=== PATIENT | female | born 1995 | race Caucasian/White ===

== ENCOUNTER 2023-12-13 08:31 | Inpatient (IN) ==
[2023-12-13] MEDS ORDERED: LIDOCAINE 1% LOCAL 20 ML VIAL INFIL PRN (14:34)
[2023-12-13] MEDS ORDERED: CALCIUM CARBONATE 500 MG CHEWABLE TAB PO PRN (14:34)
[2023-12-13] MEDS ORDERED: ACETAMINOPHEN 325 MG TAB PO PRN (14:34)
[2023-12-13] MEDS ORDERED: OXYTOCIN 30 UNITS/NSS 30 UNITS/500 ML BAG IV PRN (14:34)
--- NOTE | 2023-12-13 14:57 | History & Physical Report ---
Date of Service December 13, 2023 Assessment & Plan (1) with 39 completed weeks gestation: (2) Normal labor: Plan admit. Plan arom for augmentation. fetus category one. epidural on demand. anticipate . Admission and Anticipated Discharge Date Admission Date: December 13, 2023 History of Present Illness Chief Complaint: labor , contractions Primary Care Provider: Loi Kramer DO Patient is a 28yof, with iup at 39 4/7 weeks who presents to labor and delivery with contractions. Started at 3pm yesterday and worsened at 3am. Presented today at about 8am. Monitored for several hours and has made slow cervical change so being admitted. Good fm. no lof/vb. and Delivery Plans Flu shot given 05/04/23 - AL IOL Post-dates 12/21 OB Labs: Blood Type B Positive 05/04/23 Antibody Screen NEGATIVE 05/04/23 Hemoglobin 11.4 g/dl (12.0-16.0) L 09/24/23 Hematocrit 32.7 % (37.0-47.0) L 09/24/23 Mean Corpuscular Volume 83.7 fL (80.0-100.0) 05/04/23 Platelet Count 247 K/uL (130-400) 05/04/23 Rubella IgG Antibody Immune (Immune) 05/04/23 Rapid Plasma Reagin Nonreactive (Nonreactive) 05/04/23 Hepatitis B Surface Antigen. NON-REACTIVE (NON-REACTIVE) 05/04/23 Hepatitis C Antibody (EIA) NON-REACTIVE (NON-REACTIVE) 05/04/23 HIV (1&2) Ag and Ab Confirmation NON-REACTIVE (NON-REACTIVE) 05/04/23 Glucose 1 Hour 50 gm Load 83 mg/dl (70-130) 09/24/23 OB Optional Labs: Chlamydia trachomatis RNA Not Detected (NotDetected) 05/04/23 Neisseria gonorrhoeae RNA Not Detected (NotDetected) 05/04/23 Thyroid Stimulating Hormone (TSH) 1.058 uIu/ml (0.300-4.500) 10/15/21 Labs Reviewed: cf/sma-negative--mln Declines cfdna/quad screen--mln msafp declined smp gbs neg Allergies Allergy/AdvReac Type Severity Reaction Status Date / Time No Known Drug Allergies Allergy Verified 12/10/23 16:35 Home Medications Medication Instructions Recorded Confirmed Type albuterol sulfate 90 mcg/actuation 2 puff inhalation QID PRN prior to 01/12/21 12/13/23 History aerosol inhaler excercise fluoxetine 20 mg capsule (Prozac) 20 mg PO ONCE 04/24/22 12/13/23 History choline-silicon PO 04/28/23 12/10/23 History 21-iron fu-folic acid PO 04/28/23 12/10/23 History [ Complete] breast pump #1 ea 11/05/23 12/10/23 Rx Patient History Medical History Varicella vaccination ADHD Asthma Surgical History Hx of tooth extraction Family History Grandmother (Maternal) Diabetes Denies family history of Ovarian cancer Prostate cancer Myocardial infarction Breast cancer Colorectal cancer Cancer Social History Smoking Status: Never smoker Tobacco Type: Cigarettes Age Started Using Tobacco: 20; Age Quit Using Tobacco: 23; Cigarettes Per Day: social smoker; Second Hand Exposure: No; Do You Dip or Chew Tobacco: No; Hx Alcohol Use: No Hx Substance Use: No Preferred Language: Belizean Communication Ability: Effective Visual Impairment: Limited Hearing Ability: Normal Biomed Tech Required: Yes Beliefs That Will Affect Care: None marital status: marital status details: Jose Juan Baker (30) [phone] Current Living Situation: Spouse Current Living Situation Comment: lives with spouse, dogs current occupational status: employed current occupation: [employer] How many Children do You have: 0 Feels Safe at Home: Yes Childhood Exposure to Second-Hand Smoke: Yes caffeine: Yes Dental Care, Regularly: Yes Physical Activity Frequency Comment: physical activity at work. heavy lifting at work and walking Seatbelt Use: always Sunscreen Use: Yes Assistive Devices: None OB History g1--present DINING ROOM BUSSER History noncontributory Physical Exam Constitutional: WD/WN, vitals as above Gastrointestinal (Abdomen): soft, gravid, nt Psychiatric: A+Ox3, euthymic affect Genitourinary: cx--3-4/90/-2 toco--q3-5min efm--category one fetus. reactive nst Results & Data Vital Signs (Past 12 Hours) Vital Signs Temp Pulse Resp BP 12/13/23 09:04 37.1 C 79 22 111/65 12/13/23 08:40 79 111/65 Coding Level of Care Code None Diagnoses with 39 completed weeks gestation Z3A.39 Normal labor O80; Z37.9
[2023-12-13 15:05] LABS: Hematocrit (blood only) 36.1 % (37.0-47.0); Hemoglobin 12.3 g/dl (12.0-16.0); Mean Corpuscular Hemoglobin 29.1 pg (25.0-34.0); Mean Corpuscular Hgb Conc 34.1 g/dL (32.0-36.0); Mean Corpuscular Volume 85.3 fL (80.0-100.0); Mean Platelet Volume 11.6 fL (9.4-12.4); Platelet Count 180 K/uL (130-400); RDW Coefficient of Variation 14.8 % (11.5-14.5); RDW Standard Deviation 45.9 fL (36.4-46.3); Red Blood Count 4.23 M/uL (4.20-5.40); White Blood Count 10.33 K/ul (4.8-10.8)
[2023-12-13] MEDS: LACTATED RINGER'S 1,000 ML IV PRN (15:30)
[2023-12-13] MEDS ORDERED: LIDOCAINE 2% MPF LOCAL 5 ML VIAL EPI PRN (15:55)
[2023-12-13] MEDS ORDERED: NALOXONE HCL 1 MG in SODIUM CHLORIDE 0.9% 1,000 ML IV PRN (15:55)
[2023-12-13] MEDS ORDERED: NALBUPHINE HCL 5 MG in SYRINGE 0 ML IV PRN (15:55)
[2023-12-13] MEDS ORDERED: SODIUM CHLORIDE 0.9% PF INJ 10 ML VIAL EPI PRN (15:55)
[2023-12-13] MEDS ORDERED: ePHEDrine sulfate 50 MG/ML AMP IV PRN (15:55)
[2023-12-13] MEDS ORDERED: BUPIVACAINE 0.25% PF 30 ML VIAL EPI PRN (15:55)
[2023-12-13] MEDS ORDERED: NALOXONE HCL 0.4 MG/1 ML VIAL/CARP IV PRN (15:55)
[2023-12-13] MEDS ORDERED: ROPIVACAINE 0.5% PF 5 MG/ML 20 ML VIAL EPI PRN (15:55)
[2023-12-13] MEDS ORDERED: ONDANSETRON INJ 2 MG/ML 2 ML VIAL IV PRN (15:55)
[2023-12-13] MEDS ORDERED: fentaNYL citrate PF 100 MCG/2 ML VIAL EPI PRN (15:55)
[2023-12-13] MEDS ORDERED: fentANYL 2 MCG/ML BUPIVacaine 0.125%-NSS 100ML BAG EPI PRN (15:55)
[2023-12-13] MEDS ORDERED: diphenhydrAMINE 50 MG/ML VIAL IV PRN (15:55)
--- NOTE | 2023-12-13 15:55 | Anesthesiology Consultation ---
Date of Service December 13, 2023 Assessment & Plan Chart Review Chart Review: Patient NOT seen in Pre Admission Testing and Acceptable Risk for Labor Epidural Consults Requested none ASA ASA2 Proposed Anesthesia Anesthesia Type: Labor Epidural Risk / Benefits Reviewed With: PT / POA / Parent / Guardian, Accepts Plan and Informed Consent Obtained History Height/Weight Height: 5 ft 7 in Weight: 71.307 kg Allergies Allergy/AdvReac Type Severity Reaction Status Date / Time No Known Drug Allergies Allergy Verified 12/10/23 16:35 Medications Home Medications Medication Instructions Recorded Confirmed Last Taken albuterol sulfate 90 mcg/actuation 2 puff inhalation QID PRN prior to 01/12/21 12/13/23 Unknown aerosol inhaler excercise fluoxetine 20 mg capsule (Prozac) 20 mg PO ONCE 04/24/22 12/13/23 12/12/23 20:00 choline-silicon PO 04/28/23 12/10/23 Unknown 21-iron fu-folic acid PO 04/28/23 12/10/23 Unknown [ Complete] breast pump #1 ea 11/05/23 12/10/23 Unknown Active Medications Generic Name Dose Route Start Last Admin Trade Name Freq PRN Reason Stop Dose Admin Lactated Ringer's 1,000 mls @ 125 mls/hr 12/13/23 14:34 12/13/23 15:30 Lr IV 12/15/23 14:33 999 mls/hr .Q8H PRN Administration L&D Protocol Protocol Past Medical History Medical History Varicella vaccination ADHD Asthma Exercise / Class Metabolic Activity II 4-5 Yardwork/Stairs/Walk up hill Past Family History Family History Grandmother (Maternal) Diabetes Denies family history of Ovarian cancer Prostate cancer Myocardial infarction Breast cancer Colorectal cancer Cancer Past Surgical History Surgical History Hx of tooth extraction Past Anesthesia History No Hx of Anesthesia Complications and No Family Hx of Anesthesia Complications History of PONV No Hx of PONV and No Hx of Motion Sickness Social History Smoking Status: Never smoker Smoking cigarettes per day: social smoker Do You Dip or Chew Tobacco: No Hx Alcohol Use: No Alcohol type: hard liquor Hx Substance Use: No Physical Exam Vital Signs Last Vital Signs Temp 37.1 C 12/13/23 09:04 Pulse 75 12/13/23 15:49 Resp 22 12/13/23 09:04 BP 111/65 12/13/23 09:04 Pulse Ox 100 12/13/23 15:49 ENMT Mouth: no dentition abnormality Thyromental Distance: > or= 3.5 Finger Breadths Mallampati Class: II Neck normal visual inspection Respiratory normal respiratory effort Auscultation: lungs clear to auscultation bilaterally Cardiovascular Rate/Rhythm: regular rate and regular rhythm Psychiatric Orientation: alert Testing Laboratory Results 12/13/23 14:51
[2023-12-13] MEDS: fentANYL 2 MCG/ML BUPIVacaine 0.125%-NSS 100ML BAG ONE (16:07)
[2023-12-13] MEDS: BUPIVACAINE 0.25% PF 30 ML VIAL ONE (16:25)
[2023-12-13] MEDS: SODIUM CHLORIDE 0.9% PF INJ 10 ML VIAL ONE (16:25)
[2023-12-13] MEDS: LIDOCAINE 2%/EPINEPHRINE 1:200,000 20 ML PF ONE (16:25)
[2023-12-13] MEDS: fentaNYL citrate PF 100 MCG/2 ML VIAL ONE (16:26)
--- NOTE | 2023-12-13 16:44 | History & Physical Report ---
Date of Service December 13, 2023 Assessment & Plan (1) Normal labor: (2) with 39 completed weeks gestation: (3) Vaginal discharge during : (4) Supervision of normal first : (5) Anxiety: Plan Admit to L&D for active labor Anticipate vaginal delivery Plan is to administer epidural followed by [facility] Admission and Anticipated Discharge Date Admission Date: December 13, 2023 History of Present Illness Primary Care Provider: Loi Kramer, DO 28 yo at 39 4/7 weeks presents to L&D for contractions. Monitored for several hours and patient made slow cervical progression, so she is being admitted for labor. No complications with this . Has been attending OB appointments regularly. Currently taking fluoxetine for anxiety. GBS +, Rubella immune, B positive blood type. No vaginal bleeding or leaking fluid. Moderate contractions. Active movement. Desires an epidural. Allergies Allergy/AdvReac Type Severity Reaction Status Date / Time No Known Drug Allergies Allergy Verified 12/10/23 16:35 Home Medications Medication Instructions Recorded Confirmed Type albuterol sulfate 90 mcg/actuation 2 puff inhalation QID PRN prior to 01/12/21 12/13/23 History aerosol inhaler excercise fluoxetine 20 mg capsule (Prozac) 20 mg PO ONCE 04/24/22 12/13/23 History choline-silicon PO 04/28/23 12/10/23 History 21-iron fu-folic acid PO 04/28/23 12/10/23 History [ Complete] breast pump #1 ea 11/05/23 12/10/23 Rx Past Med/Surg History Problem List (Updated 12/13/23 @ 16:30 by Rebekah Patton) Normal labor with 39 completed weeks gestation Vaginal discharge during Supervision of normal first Anxiety Medical History Varicella vaccination ADHD Asthma Surgical History Hx of tooth extraction Family History Grandmother (Maternal) Diabetes Denies family history of Ovarian cancer Prostate cancer Myocardial infarction Breast cancer Colorectal cancer Cancer Social History Smoking Status: Never smoker Tobacco Type: Cigarettes Age Started Using Tobacco: 20; Age Quit Using Tobacco: 23; Cigarettes Per Day: social smoker; Second Hand Exposure: No; Do You Dip or Chew Tobacco: No; Hx Alcohol Use: No Hx Substance Use: No Preferred Language: Swedish Communication Ability: Effective Visual Impairment: Limited Hearing Ability: Normal Paste Thinner Required: Yes Beliefs That Will Affect Care: None marital status: marital status details: Jose Juan Baker (30) [phone] Current Living Situation: Spouse Current Living Situation Comment: lives with spouse, dogs current occupational status: employed current occupation: [employer] How many Children do You have: 0 Feels Safe at Home: Yes Childhood Exposure to Second-Hand Smoke: Yes caffeine: Yes Dental Care, Regularly: Yes Physical Activity Frequency Comment: physical activity at work. heavy lifting at work and walking Seatbelt Use: always Sunscreen Use: Yes Assistive Devices: None Review of Systems Review of Systems: as per HPI Physical Exam Constitutional: WD/WN, vitals as above Respiratory: normal respiratory effort, lungs clear to auscultation Cardiovascular: RRR, no murmur, no edema Gastrointestinal (Abdomen): Percussion/Palpation: abdomen soft (non-tender) Psychiatric: A+Ox3, euthymic affect Results & Data Results & Data Vital Signs (Past 12 Hours) Vital Signs Temp Pulse Resp BP Pulse Ox 12/13/23 15:34 100 12/13/23 15:34 68 12/13/23 09:04 37.1 C 79 22 111/65 12/13/23 08:40 79 111/65 (3) Vaginal discharge during Trimester: unspecified trimester Qualified Code(s): O26.899 - Other specified related conditions, unspecified trimester; N89.8 - Other specified noninflammatory disorders of vagina (4) Supervision of normal first Trimester: unspecified trimester Qualified Code(s): Z34.00 - Encounter for supervision of normal first , unspecified trimester
--- NOTE | 2023-12-13 17:02 | Medical Student H&P ---
Date of Service December 13, 2023 Assessment & Plan (1) Normal labor: (2) with 39 completed weeks gestation: (3) Vaginal discharge during : Trimester: third trimester Qualified Code(s): O26.893 - Other specified related conditions, third trimester; N89.8 - Other specified noninflammatory disorders of vagina (4) Supervision of normal first : Trimester: unspecified trimester Qualified Code(s): Z34.00 - Encounter for supervision of normal first , unspecified trimester (5) Anxiety: Plan Admit to L&D for labor Anticipate vaginal delivery Epidural followed by [facility] Admission and Anticipated Discharge Date Admission Date: December 13, 2023 History of Present Illness Primary Care Provider: Loi Kramer, DO 28 yo at 39 4/7 weeks presents to L&D for contractions. Monitored for 3 hours and cervix progressed from 1.5 to 3.5. Admitting for labor. No complications with this . Has been attending OB appointments regularly. Currently taking fluoxetine 20 mg for anxiety. GBS negative, Rubella immune, B positive blood type. No vaginal bleeding or fluid leakage. Moderate contractions. Active movement. Epidural desired. Allergies Allergy/AdvReac Type Severity Reaction Status Date / Time No Known Drug Allergies Allergy Verified 12/10/23 16:35 Home Medications Medication Instructions Recorded Confirmed Type albuterol sulfate 90 mcg/actuation 2 puff inhalation QID PRN prior to 01/12/21 12/13/23 History aerosol inhaler excercise fluoxetine 20 mg capsule (Prozac) 20 mg PO ONCE 04/24/22 12/13/23 History choline-silicon PO 04/28/23 12/10/23 History 21-iron fu-folic acid PO 04/28/23 12/10/23 History [ Complete] breast pump #1 ea 11/05/23 12/10/23 Rx Past Med/Surg History Problem List (Updated 12/13/23 @ 16:30 by Rebekah Patton) Normal labor with 39 completed weeks gestation Vaginal discharge during Supervision of normal first Anxiety Medical History Varicella vaccination ADHD Asthma Surgical History Hx of tooth extraction Family History Grandmother (Maternal) Diabetes Denies family history of Ovarian cancer Prostate cancer Myocardial infarction Breast cancer Colorectal cancer Cancer Social History Smoking Status: Never smoker Tobacco Type: Cigarettes Age Started Using Tobacco: 20; Age Quit Using Tobacco: 23; Cigarettes Per Day: social smoker; Second Hand Exposure: No; Do You Dip or Chew Tobacco: No; Hx Alcohol Use: No Hx Substance Use: No Preferred Language: Bolivian Communication Ability: Effective Visual Impairment: Limited Hearing Ability: Normal Gauge Operator Required: Yes Beliefs That Will Affect Care: None marital status: marital status details: Jose Juan Baker (30) [phone] Current Living Situation: Spouse Current Living Situation Comment: lives with spouse, dogs current occupational status: employed current occupation: [employer] How many Children do You have: 0 Feels Safe at Home: Yes Childhood Exposure to Second-Hand Smoke: Yes caffeine: Yes Dental Care, Regularly: Yes Physical Activity Frequency Comment: physical activity at work. heavy lifting at work and walking Seatbelt Use: always Sunscreen Use: Yes Assistive Devices: None Review of Systems As per HPI Physical Exam Constitutional: WD/WN, vitals as above Respiratory: normal respiratory effort, lungs clear to auscultation Cardiovascular: RRR, no murmur, no edema Gastrointestinal (Abdomen): Percussion/Palpation: abdomen soft (non-tender) Psychiatric: A+Ox3, euthymic affect Results & Data Vital Signs (Past 12 Hours) Vital Signs Temp Pulse Resp BP Pulse Ox 12/13/23 16:44 100 12/13/23 16:44 58 L 12/13/23 16:41 60 12/13/23 16:41 107/63 12/13/23 16:39 100 12/13/23 16:39 59 L 12/13/23 16:34 100 12/13/23 16:34 68 12/13/23 16:29 100 12/13/23 16:29 63 12/13/23 16:24 100 12/13/23 16:24 63 12/13/23 16:22 62 12/13/23 16:22 99/54 L 12/13/23 16:20 67 12/13/23 16:20 104/58 L 12/13/23 16:19 100 12/13/23 16:19 64 12/13/23 16:19 68 12/13/23 16:19 104/59 L 12/13/23 16:17 68 12/13/23 16:17 106/64 12/13/23 16:14 100 12/13/23 16:14 70 12/13/23 16:14 101/60 12/13/23 16:12 64 12/13/23 16:12 104/61 12/13/23 16:10 67 12/13/23 16:10 111/67 12/13/23 16:09 100 12/13/23 16:09 70 12/13/23 16:09 66 12/13/23 16:09 109/66 12/13/23 16:07 84 12/13/23 16:07 110/69 12/13/23 16:04 100 12/13/23 16:04 79 12/13/23 15:59 100 12/13/23 15:59 78 12/13/23 15:58 65 12/13/23 15:58 107/66 12/13/23 15:54 100 12/13/23 15:54 65 12/13/23 15:49 100 12/13/23 15:49 75 12/13/23 15:44 100 12/13/23 15:44 66 12/13/23 15:39 100 12/13/23 15:39 63 12/13/23 15:34 100 12/13/23 15:34 68 12/13/23 09:04 37.1 C 79 22 111/65 12/13/23 08:40 79 111/65 Supervising Attestation Please see formal H&P per attending
--- NOTE | 2023-12-13 17:04 | Labor Progress Brief Note ---
Date of Service December 13, 2023 Subjective comfortable after epidural Assessment & Plan (1) Normal labor: Plan continue current plan. fetus overall category one. pit if indicated. anticipate . Admission and Anticipated Discharge Date Admission Date: December 13, 2023 Physical Exam Physical Exam: cx--5-6/100/-2 arom--clear toco--q2-4 efm--150s with mod variability, small accels, rare variable. Results & Data Vital Signs (Past 12 Hours) Vital Signs Temp Pulse Resp BP Pulse Ox 12/13/23 16:59 100 12/13/23 16:59 66 12/13/23 16:54 100 12/13/23 16:54 69 12/13/23 16:54 66 12/13/23 16:54 108/65 12/13/23 16:49 100 12/13/23 16:49 65 12/13/23 16:44 100 12/13/23 16:44 58 L 12/13/23 16:41 60 12/13/23 16:41 107/63 12/13/23 16:39 100 12/13/23 16:39 59 L 12/13/23 16:34 100 12/13/23 16:34 68 12/13/23 16:29 100 12/13/23 16:29 63 12/13/23 16:24 100 12/13/23 16:24 63 12/13/23 16:22 62 12/13/23 16:22 99/54 L 12/13/23 16:20 67 12/13/23 16:20 104/58 L 12/13/23 16:19 100 12/13/23 16:19 64 12/13/23 16:19 68 12/13/23 16:19 104/59 L 12/13/23 16:17 68 12/13/23 16:17 106/64 12/13/23 16:14 100 12/13/23 16:14 70 12/13/23 16:14 101/60 12/13/23 16:12 64 12/13/23 16:12 104/61 12/13/23 16:10 67 12/13/23 16:10 111/67 12/13/23 16:09 100 12/13/23 16:09 70 12/13/23 16:09 66 12/13/23 16:09 109/66 06/03/24 16:07 84 12/13/23 16:07 110/69 12/13/23 16:04 100 12/13/23 16:04 79 12/13/23 15:59 100 12/13/23 15:59 78 12/13/23 15:58 65 12/13/23 15:58 107/66 12/13/23 15:54 100 12/13/23 15:54 65 12/13/23 15:49 100 12/13/23 15:49 75 12/13/23 15:44 100 12/13/23 15:44 66 12/13/23 15:39 100 12/13/23 15:39 63 12/13/23 15:34 100 12/13/23 15:34 68 12/13/23 09:04 37.1 C 79 22 111/65 12/13/23 08:40 79 111/65 Coding Level of Care Code None Diagnoses Normal labor O80; Z37.9
[2023-12-13] MEDS: BUPIVACAINE 0.25% PF 30 ML VIAL EPI STA (18:58)
[2023-12-13] MEDS: LIDOCAINE 2%/EPINEPHRINE 1:200,000 20 ML PF EPI STA (18:58)
[2023-12-13] MEDS: SODIUM CHLORIDE 0.9% PF INJ 10 ML VIAL EPI STA (18:58)
[2023-12-13] MEDS: ePHEDrine sulfate 50 MG/ML AMP ONE (18:58)
[2023-12-13] MEDS: fentaNYL citrate PF 100 MCG/2 ML VIAL EPI STA (18:58)
--- NOTE | 2023-12-13 20:09 | Labor Progress Brief Note ---
Date of Service December 13, 2023 Subjective comfortable Assessment & Plan (1) Normal labor: Plan continue current management. fetus category one. pitocin if contractions space. anticipate . Admission and Anticipated Discharge Date Admission Date: December 13, 2023 Physical Exam Physical Exam: cx--7/100/-1 toco--q2-4min osp==230q with mod variability, accels to 150s, no decels Results & Data Vital Signs (Past 12 Hours) Vital Signs Temp Pulse Resp BP Pulse Ox 12/13/23 20:04 99 12/13/23 20:04 67 12/13/23 19:59 100 12/13/23 19:59 67 12/13/23 19:54 100 12/13/23 19:54 67 12/13/23 19:54 101/53 L 12/13/23 19:49 100 12/13/23 19:49 67 12/13/23 19:48 94 12/13/23 19:48 68 12/13/23 19:44 100 12/13/23 19:44 68 12/13/23 19:39 100 12/13/23 19:39 67 12/13/23 19:38 68 12/13/23 19:38 98/54 L 12/13/23 19:35 91 12/13/23 19:35 83 12/13/23 19:34 100 12/13/23 19:34 83 12/13/23 19:30 18 12/13/23 19:30 18 12/13/23 19:29 100 12/13/23 19:29 64 12/13/23 19:26 72 12/13/23 19:26 112/54 L 12/13/23 19:25 93 12/13/23 19:25 70 12/13/23 19:24 100 12/13/23 19:24 63 12/13/23 19:19 100 12/13/23 19:19 63 12/13/23 19:14 100 12/13/23 19:14 62 12/13/23 19:09 100 12/13/23 19:09 64 12/13/23 19:08 63 12/13/23 19:08 107/65 12/13/23 19:04 100 12/13/23 19:04 67 12/13/23 19:00 36.8 C 18 12/13/23 18:59 100 12/13/23 18:59 64 12/13/23 18:54 100 12/13/23 18:54 62 12/13/23 18:54 60 12/13/23 18:54 110/70 12/13/23 18:49 99 12/13/23 18:49 61 12/13/23 18:45 91 12/13/23 18:45 80 12/13/23 18:44 100 12/13/23 18:44 80 12/13/23 18:39 100 12/13/23 18:39 61 12/13/23 18:39 59 L 12/13/23 18:39 105/61 12/13/23 18:34 100 12/13/23 18:34 68 12/13/23 18:29 100 12/13/23 18:29 72 12/13/23 18:24 100 12/13/23 18:24 61 12/13/23 18:23 72 12/13/23 18:23 93/58 L 12/13/23 18:19 100 12/13/23 18:19 70 12/13/23 18:14 99 12/13/23 18:14 67 12/13/23 18:09 100 12/13/23 18:09 80 12/13/23 18:08 71 12/13/23 18:08 93/58 L 12/13/23 18:04 100 12/13/23 18:04 63 12/13/23 17:59 16 12/13/23 17:59 16 12/13/23 17:59 99 12/13/23 17:59 68 12/13/23 17:54 100 12/13/23 17:54 66 12/13/23 17:53 67 12/13/23 17:53 94/59 L 12/13/23 17:49 100 12/13/23 17:49 64 12/13/23 17:47 90 12/13/23 17:47 84 12/13/23 17:44 100 12/13/23 17:44 62 12/13/23 17:41 57 L 12/13/23 17:41 99/61 L 12/13/23 17:39 100 12/13/23 17:39 72 12/13/23 17:38 77 12/13/23 17:38 88/53 L 12/13/23 17:34 100 12/13/23 17:34 67 12/13/23 17:29 99 12/13/23 17:29 68 12/13/23 17:24 100 12/13/23 17:24 73 12/13/23 17:24 65 12/13/23 17:24 98/61 L 12/13/23 17:19 100 12/13/23 17:19 69 12/13/23 17:14 99 12/13/23 17:14 67 12/13/23 17:09 100 12/13/23 17:09 66 12/13/23 17:08 61 12/13/23 17:08 103/67 12/13/23 17:04 100 12/13/23 17:04 59 L 12/13/23 16:59 100 12/13/23 16:59 66 12/13/23 16:55 20 12/13/23 16:55 36.8 C 20 12/13/23 16:54 100 12/13/23 16:54 69 12/13/23 16:54 66 12/13/23 16:54 108/65 12/13/23 16:49 100 12/13/23 16:49 65 12/13/23 16:44 100 12/13/23 16:44 58 L 12/13/23 16:41 60 12/13/23 16:41 107/63 12/13/23 16:39 100 12/13/23 16:39 59 L 12/13/23 16:34 100 12/13/23 16:34 68 12/13/23 16:29 100 12/13/23 16:29 63 12/13/23 16:24 100 12/13/23 16:24 63 12/13/23 16:22 62 12/13/23 16:22 99/54 L 12/13/23 16:20 67 12/13/23 16:20 104/58 L 12/13/23 16:19 100 12/13/23 16:19 64 12/13/23 16:19 68 12/13/23 16:19 104/59 L 12/13/23 16:17 68 12/13/23 16:17 106/64 12/13/23 16:14 100 12/13/23 16:14 70 12/13/23 16:14 101/60 12/13/23 16:12 64 12/13/23 16:12 104/61 12/13/23 16:10 67 12/13/23 16:10 111/67 12/13/23 16:09 100 12/13/23 16:09 70 12/13/23 16:09 66 12/13/23 16:09 109/66 12/13/23 16:07 84 12/13/23 16:07 110/69 12/13/23 16:04 100 12/13/23 16:04 79 12/13/23 15:59 100 12/13/23 15:59 78 12/13/23 15:58 65 12/13/23 15:58 107/66 12/13/23 15:54 100 12/13/23 15:54 65 12/13/23 15:49 100 12/13/23 15:49 75 12/13/23 15:44 100 12/13/23 15:44 66 12/13/23 15:39 100 12/13/23 15:39 63 12/13/23 15:34 100 12/13/23 15:34 68 12/13/23 09:04 37.1 C 79 22 111/65 12/13/23 08:40 79 111/65 Coding Level of Care Code None Diagnoses Normal labor O80; Z37.9
--- NOTE | 2023-12-13 22:18 | Labor Progress Brief Note ---
Date of Service December 13, 2023 Subjective comfortable. not feeling pressure Assessment & Plan (1) Normal labor: Plan Will add pit as there have been some spacing of contractions. Recheck in one hour and likely start pushing. fetus category one. Admission and Anticipated Discharge Date Admission Date: December 13, 2023 Physical Exam Physical Exam: cx--ant lip, c/0 toco--q2-5min efm--130s wtih mod variability, accels present, no decels Results & Data Vital Signs (Past 12 Hours) Vital Signs Temp Pulse Resp BP Pulse Ox 12/13/23 22:15 91 12/13/23 22:15 67 12/13/23 22:14 97 12/13/23 22:14 60 12/13/23 22:09 98 12/13/23 22:09 64 12/13/23 22:09 60 12/13/23 22:09 97/52 L 12/13/23 22:04 97 12/13/23 22:04 62 12/13/23 22:00 18 12/13/23 22:00 18 12/13/23 21:59 98 12/13/23 21:59 63 12/13/23 21:54 98 12/13/23 21:54 64 12/13/23 21:54 59 L 12/13/23 21:54 98/55 L 12/13/23 21:49 98 12/13/23 21:49 61 12/13/23 21:44 98 12/13/23 21:44 64 12/13/23 21:39 98 12/13/23 21:39 60 12/13/23 21:39 61 12/13/23 21:39 101/56 L 12/13/23 21:34 99 12/13/23 21:34 61 12/13/23 21:30 18 12/13/23 21:30 18 12/13/23 21:29 99 12/13/23 21:29 60 12/13/23 21:25 36.8 C 12/13/23 21:24 98 12/13/23 21:24 71 12/13/23 21:24 93/54 L 12/13/23 21:19 99 12/13/23 21:19 68 12/13/23 21:14 99 12/13/23 21:14 65 12/13/23 21:09 100 12/13/23 21:09 65 12/13/23 21:08 64 12/13/23 21:08 90/51 L 12/13/23 21:04 99 12/13/23 21:04 64 12/13/23 21:00 18 12/13/23 21:00 18 12/13/23 20:59 100 12/13/23 20:59 64 12/13/23 20:54 98 12/13/23 20:54 61 12/13/23 20:53 61 12/13/23 20:53 90/56 L 12/13/23 20:49 100 12/13/23 20:49 65 12/13/23 20:46 93 12/13/23 20:46 71 12/13/23 20:44 97 12/13/23 20:44 73 12/13/23 20:39 100 12/13/23 20:39 68 12/13/23 20:38 62 12/13/23 20:38 99/64 L 12/13/23 20:34 100 12/13/23 20:34 64 12/13/23 20:30 18 12/13/23 20:30 18 12/13/23 20:29 100 12/13/23 20:29 66 12/13/23 20:24 100 12/13/23 20:24 67 12/13/23 20:24 61 12/13/23 20:24 105/70 12/13/23 20:19 100 12/13/23 20:19 69 12/13/23 20:14 100 12/13/23 20:14 62 12/13/23 20:10 70 12/13/23 20:10 105/73 12/13/23 20:09 98 12/13/23 20:09 76 12/13/23 20:07 92 12/13/23 20:07 66 12/13/23 20:04 99 12/13/23 20:04 67 12/13/23 20:00 18 12/13/23 20:00 18 12/13/23 19:59 100 12/13/23 19:59 67 12/13/23 19:54 100 12/13/23 19:54 67 12/13/23 19:54 101/53 L 12/13/23 19:49 100 12/13/23 19:49 67 12/13/23 19:48 94 12/13/23 19:48 68 12/13/23 19:44 100 12/13/23 19:44 68 12/13/23 19:39 100 12/13/23 19:39 67 12/13/23 19:38 68 12/13/23 19:38 98/54 L 12/13/23 19:35 91 12/13/23 19:35 83 12/13/23 19:34 100 12/13/23 19:34 83 12/13/23 19:30 18 12/13/23 19:30 18 12/13/23 19:29 100 12/13/23 19:29 64 12/13/23 19:26 72 12/13/23 19:26 112/54 L 12/13/23 19:25 93 12/13/23 19:25 70 12/13/23 19:24 100 12/13/23 19:24 63 12/13/23 19:19 100 12/13/23 19:19 63 12/13/23 19:14 100 12/13/23 19:14 62 12/13/23 19:09 100 12/13/23 19:09 64 12/13/23 19:08 63 12/13/23 19:08 107/65 12/13/23 19:04 100 12/13/23 19:04 67 12/13/23 19:00 36.8 C 18 12/13/23 18:59 100 12/13/23 18:59 64 12/13/23 18:54 100 12/13/23 18:54 62 12/13/23 18:54 60 12/13/23 18:54 110/70 12/13/23 18:49 99 12/13/23 18:49 61 12/13/23 18:45 91 12/13/23 18:45 80 12/13/23 18:44 100 12/13/23 18:44 80 12/13/23 18:39 100 12/13/23 18:39 61 12/13/23 18:39 59 L 12/13/23 18:39 105/61 12/13/23 18:34 100 12/13/23 18:34 68 12/13/23 18:29 100 12/13/23 18:29 72 12/13/23 18:24 100 12/13/23 18:24 61 12/13/23 18:23 72 12/13/23 18:23 93/58 L 12/13/23 18:19 100 12/13/23 18:19 70 12/13/23 18:14 99 12/13/23 18:14 67 12/13/23 18:09 100 12/13/23 18:09 80 12/13/23 18:08 71 12/13/23 18:08 93/58 L 12/13/23 18:04 100 12/13/23 18:04 63 12/13/23 17:59 16 12/13/23 17:59 16 12/13/23 17:59 99 12/13/23 17:59 68 12/13/23 17:54 100 12/13/23 17:54 66 12/13/23 17:53 67 12/13/23 17:53 94/59 L 12/13/23 17:49 100 12/13/23 17:49 64 12/13/23 17:47 90 12/13/23 17:47 84 12/13/23 17:44 100 12/13/23 17:44 62 12/13/23 17:41 57 L 12/13/23 17:41 99/61 L 12/13/23 17:39 100 12/13/23 17:39 72 12/13/23 17:38 77 12/13/23 17:38 88/53 L 12/13/23 17:34 100 12/13/23 17:34 67 12/13/23 17:29 99 12/13/23 17:29 68 12/13/23 17:24 100 12/13/23 17:24 73 12/13/23 17:24 65 12/13/23 17:24 98/61 L 12/13/23 17:19 100 12/13/23 17:19 69 12/13/23 17:14 99 12/13/23 17:14 67 12/13/23 17:09 100 12/13/23 17:09 66 12/13/23 17:08 61 12/13/23 17:08 103/67 12/13/23 17:04 100 12/13/23 17:04 59 L 12/13/23 16:59 100 12/13/23 16:59 66 12/13/23 16:55 20 12/13/23 16:55 36.8 C 20 12/13/23 16:54 100 12/13/23 16:54 69 12/13/23 16:54 66 12/13/23 16:54 108/65 12/13/23 16:49 100 12/13/23 16:49 65 12/13/23 16:44 100 12/13/23 16:44 58 L 12/13/23 16:41 60 12/13/23 16:41 107/63 12/13/23 16:39 100 12/13/23 16:39 59 L 12/13/23 16:34 100 12/13/23 16:34 68 12/13/23 16:29 100 12/13/23 16:29 63 12/13/23 16:24 100 12/13/23 16:24 63 12/13/23 16:22 62 12/13/23 16:22 99/54 L 12/13/23 16:20 67 12/13/23 16:20 104/58 L 12/13/23 16:19 100 12/13/23 16:19 64 12/13/23 16:19 68 12/13/23 16:19 104/59 L 12/13/23 16:17 68 12/13/23 16:17 106/64 12/13/23 16:14 100 12/13/23 16:14 70 12/13/23 16:14 101/60 12/13/23 16:12 64 12/13/23 16:12 104/61 12/13/23 16:10 67 12/13/23 16:10 111/67 12/13/23 16:09 100 12/13/23 16:09 70 12/13/23 16:09 66 12/13/23 16:09 109/66 12/13/23 16:07 84 12/13/23 16:07 110/69 12/13/23 16:04 100 12/13/23 16:04 79 12/13/23 15:59 100 12/13/23 15:59 78 12/13/23 15:58 65 12/13/23 15:58 107/66 12/13/23 15:54 100 12/13/23 15:54 65 12/13/23 15:49 100 12/13/23 15:49 75 12/13/23 15:44 100 12/13/23 15:44 66 12/13/23 15:39 100 12/13/23 15:39 63 12/13/23 15:34 100 12/13/23 15:34 68 Coding Level of Care Code None Diagnoses Normal labor O80; Z37.9
[2023-12-13] MEDS: OXYTOCIN 30 UNITS/NSS 30 UNITS/500 ML BAG IV PRN (22:27)
--- NOTE | 2023-12-14 01:08 | Delivery Summary ---
Vaginal Delivery Summary Date of Service December 14, 2023 Vaginal Delivery Summary and 2nd Degree LAC (and bilateral labial) Pre-operative Diagnosis: at 39 5/7 weeks labor Post-operative Diagnosis: same Procedure: epidural arom pitocin second degree lac and bilateral labial lacs EBL: 283cc Anesthesia: epidural Procedure: The patient presented to labor and delivery in early active labor. She progressed to 5cm and got an epidural. She needed some pitocin augmentation to get to c/c/+1. The patient pushed for about 1.5 hrs to deliver a viable female infant in cuba position. The nose and mouth were bulb suctioned on the perineum and the rest of the infant was then delivered without difficulty. The baby was vigorous. The nose and mouth were again bulb suctioned and the infant was placed in the maternal abdomen for drying and attention. Cord was clamped and cut at one minute of life. Cord blood and segment obtained. Placenta delivered spontaneous, intact with a three vessel cord. Cervix/sulci/rectum were intact. A second degree perineal laceration and bilateral labial lacs were repaired in the normal standard fashion. Hemostasis obtained with dilute pitocin and fundal massage. Apgars were 8/9. Mother and baby doing well at the end of the delivery. [facility] Vaginal Delivery Charge Delivery Type Details: and 2nd Degree LAC (and bilateral labial)
[2023-12-14] MEDS ORDERED: OXYTOCIN 30 UNITS/NSS 30 UNITS/500 ML BAG IV PRN (01:15)
[2023-12-14] MEDS ORDERED: bisacodyL 10 MG SUPP PR PRN (01:15)
[2023-12-14] MEDS ORDERED: HYDROCORTISONE ACETATE 25 MG SUPP PR PRN (01:15)
[2023-12-14] MEDS ORDERED: oxyCODONE/ACETAMINOPHEN 5mg/325mg TAB PO PRN (01:15)
[2023-12-14] MEDS: DIPHTHER/TETAN/PERTUS Vaccine (Tdap, Adol/Adult) 0.5mL IM ONE (01:37)
[2023-12-14] MEDS: FLUoxetine HCL 20 MG CAP PO ONE (02:02)
[2023-12-14] MEDS: BENZOCAINE 20% SPRY 85 APPLN/85 GM CAN EXT PRN (06:19)
--- NOTE | 2023-12-14 07:46 | Obstetrical Progress Note ---
Date of Service December 14, 2023 Assessment & Plan (1) Encounter for assessment: Plan Doing well now about 8 hours pp. Routine care. Day #:: 0 Subjective Ambulation: ambulating normally Voiding: no voiding problems Passing Gas:: Yes Diet Tolerance:: regular diet Lochia:: Small Feeding Type:: breast feeding Physical Exam Constitutional WD/WN, vitals as above Cardiovascular Extremities: no calf tenderness and no edema Gastrointestinal (Abdomen) soft, nt, nd, ff/nt at u Psychiatric A+Ox3, euthymic affect Results & Data Vital Signs (Past 12 Hours) Vital Signs Temp Pulse Pulse Resp BP BP Pulse Ox 12/14/23 03:15 36.6 C 68 18 122/76 99 12/14/23 03:00 36.9 C 20 12/14/23 03:00 78 116/67 12/14/23 02:45 74 105/56 L 12/14/23 02:30 18 12/14/23 02:30 78 103/61 12/14/23 02:15 78 103/59 L 12/14/23 02:00 18 12/14/23 02:00 75 111/61 12/14/23 01:46 80 106/55 L 12/14/23 01:45 20 12/14/23 01:30 18 12/14/23 01:30 80 112/68 12/14/23 01:15 18 12/14/23 01:15 81 98/53 L 12/14/23 01:12 78 97 12/14/23 01:07 79 98 12/14/23 01:02 86 94 12/14/23 01:00 20 12/14/23 01:00 80 102/59 L 12/14/23 00:58 86 92 12/14/23 00:57 81 98 12/14/23 00:54 80 109/55 L 12/14/23 00:52 82 98 12/14/23 00:48 88 93 12/14/23 00:47 86 97 12/14/23 00:42 111 H 98 12/14/23 00:37 100 12/14/23 00:37 99 H 12/14/23 00:37 84 90 12/14/23 00:32 96 H 100 12/14/23 00:31 81 77 L 12/14/23 00:27 105 H 100 12/14/23 00:22 84 100 12/14/23 00:21 75 89 L 12/14/23 00:17 108 H 94 12/14/23 00:15 72 87 L 12/14/23 00:12 76 100 12/14/23 00:09 82 111/56 L 12/14/23 00:06 89 98 12/14/23 00:05 76 85 L 12/14/23 00:01 80 98 12/14/23 00:00 70 85 L 12/13/23 23:56 100 12/13/23 23:56 89 12/13/23 23:50 99 12/13/23 23:50 72 12/13/23 23:50 36.8 C 12/13/23 23:46 78 L 12/13/23 23:46 73 12/13/23 23:45 100 12/13/23 23:45 74 12/13/23 23:40 99 12/13/23 23:40 76 12/13/23 23:38 66 12/13/23 23:38 107/62 12/13/23 23:37 86 L 12/13/23 23:37 80 12/13/23 23:34 100 12/13/23 23:34 84 12/13/23 23:30 20 12/13/23 23:30 20 12/13/23 23:29 99 12/13/23 23:29 71 12/13/23 23:25 73 12/13/23 23:25 106/59 L 12/13/23 23:24 99 12/13/23 23:24 94 H 12/13/23 23:19 99 12/13/23 23:19 67 12/13/23 23:14 100 12/13/23 23:14 69 12/13/23 23:09 100 12/13/23 23:09 69 12/13/23 23:08 67 12/13/23 23:08 91/55 L 12/13/23 23:04 100 12/13/23 23:04 69 12/13/23 23:00 18 12/13/23 23:00 18 12/13/23 22:59 100 12/13/23 22:59 85 12/13/23 22:55 63 12/13/23 22:55 102/63 12/13/23 22:54 100 12/13/23 22:54 65 12/13/23 22:49 100 12/13/23 22:49 61 12/13/23 22:44 100 12/13/23 22:44 62 12/13/23 22:39 100 12/13/23 22:39 73 12/13/23 22:39 68 12/13/23 22:39 108/57 L 12/13/23 22:34 99 12/13/23 22:34 70 12/13/23 22:30 20 12/13/23 22:30 20 12/13/23 22:29 100 12/13/23 22:29 74 12/13/23 22:24 100 12/13/23 22:24 64 12/13/23 22:24 107/67 12/13/23 22:19 100 12/13/23 22:19 65 12/13/23 22:15 91 12/13/23 22:15 67 12/13/23 22:14 97 12/13/23 22:14 60 12/13/23 22:09 98 12/13/23 22:09 64 12/13/23 22:09 60 12/13/23 22:09 97/52 L 12/13/23 22:04 97 12/13/23 22:04 62 12/13/23 22:00 18 12/13/23 22:00 18 12/13/23 21:59 98 12/13/23 21:59 63 12/13/23 21:54 98 12/13/23 21:54 64 12/13/23 21:54 59 L 12/13/23 21:54 98/55 L 12/13/23 21:49 98 12/13/23 21:49 61 12/13/23 21:44 98 12/13/23 21:44 64 12/13/23 21:39 98 12/13/23 21:39 60 12/13/23 21:39 61 12/13/23 21:39 101/56 L 12/13/23 21:34 99 12/13/23 21:34 61 12/13/23 21:30 18 12/13/23 21:30 18 12/13/23 21:29 99 12/13/23 21:29 60 12/13/23 21:25 36.8 C 12/13/23 21:24 98 12/13/23 21:24 71 12/13/23 21:24 93/54 L 12/13/23 21:19 99 12/13/23 21:19 68 12/13/23 21:14 99 12/13/23 21:14 65 12/13/23 21:09 100 12/13/23 21:09 65 12/13/23 21:08 64 12/13/23 21:08 90/51 L 12/13/23 21:04 99 12/13/23 21:04 64 12/13/23 21:00 18 12/13/23 21:00 18 12/13/23 20:59 100 12/13/23 20:59 64 12/13/23 20:54 98 12/13/23 20:54 61 12/13/23 20:53 61 12/13/23 20:53 90/56 L 12/13/23 20:49 100 12/13/23 20:49 65 12/13/23 20:46 93 12/13/23 20:46 71 12/13/23 20:44 97 12/13/23 20:44 73 12/13/23 20:39 100 12/13/23 20:39 68 12/13/23 20:38 62 12/13/23 20:38 99/64 L 12/13/23 20:34 100 12/13/23 20:34 64 12/13/23 20:30 18 12/13/23 20:30 18 12/13/23 20:29 100 12/13/23 20:29 66 12/13/23 20:24 100 12/13/23 20:24 67 12/13/23 20:24 61 12/13/23 20:24 105/70 12/13/23 20:19 100 12/13/23 20:19 69 12/13/23 20:14 100 12/13/23 20:14 62 12/13/23 20:10 70 12/13/23 20:10 105/73 12/13/23 20:09 98 12/13/23 20:09 76 12/13/23 20:07 92 12/13/23 20:07 66 12/13/23 20:04 99 12/13/23 20:04 67 12/13/23 20:00 18 12/13/23 20:00 18 06/03/24 19:59 100 12/13/23 19:59 67 12/13/23 19:54 100 12/13/23 19:54 67 12/13/23 19:54 101/53 L 12/13/23 19:49 100 12/13/23 19:49 67 12/13/23 19:48 94 12/13/23 19:48 68 O2 Del Method 12/14/23 03:15 Room Air 12/14/23 03:00 12/14/23 03:00 12/14/23 02:45 12/14/23 02:30 12/14/23 02:30 12/14/23 02:15 12/14/23 02:00 12/14/23 02:00 12/14/23 01:46 12/14/23 01:45 12/14/23 01:30 12/14/23 01:30 12/14/23 01:15 12/14/23 01:15 12/14/23 01:12 12/14/23 01:07 12/14/23 01:02 12/14/23 01:00 12/14/23 01:00 12/14/23 00:58 12/14/23 00:57 12/14/23 00:54 12/14/23 00:52 12/14/23 00:48 12/14/23 00:47 12/14/23 00:42 12/14/23 00:37 12/14/23 00:37 12/14/23 00:37 12/14/23 00:32 12/14/23 00:31 12/14/23 00:27 12/14/23 00:22 12/14/23 00:21 12/14/23 00:17 12/14/23 00:15 12/14/23 00:12 12/14/23 00:09 12/14/23 00:06 12/14/23 00:05 12/14/23 00:01 12/14/23 00:00 12/13/23 23:56 12/13/23 23:56 12/13/23 23:50 12/13/23 23:50 12/13/23 23:50 12/13/23 23:46 12/13/23 23:46 12/13/23 23:45 12/13/23 23:45 12/13/23 23:40 12/13/23 23:40 12/13/23 23:38 12/13/23 23:38 12/13/23 23:37 12/13/23 23:37 12/13/23 23:34 12/13/23 23:34 12/13/23 23:30 12/13/23 23:30 12/13/23 23:29 12/13/23 23:29 12/13/23 23:25 12/13/23 23:25 12/13/23 23:24 12/13/23 23:24 12/13/23 23:19 12/13/23 23:19 12/13/23 23:14 12/13/23 23:14 12/13/23 23:09 12/13/23 23:09 12/13/23 23:08 12/13/23 23:08 12/13/23 23:04 12/13/23 23:04 12/13/23 23:00 12/13/23 23:00 12/13/23 22:59 12/13/23 22:59 12/13/23 22:55 12/13/23 22:55 12/13/23 22:54 12/13/23 22:54 12/13/23 22:49 12/13/23 22:49 12/13/23 22:44 12/13/23 22:44 12/13/23 22:39 12/13/23 22:39 12/13/23 22:39 12/13/23 22:39 12/13/23 22:34 12/13/23 22:34 12/13/23 22:30 12/13/23 22:30 12/13/23 22:29 12/13/23 22:29 12/13/23 22:24 12/13/23 22:24 12/13/23 22:24 12/13/23 22:19 12/13/23 22:19 12/13/23 22:15 12/13/23 22:15 12/13/23 22:14 12/13/23 22:14 12/13/23 22:09 12/13/23 22:09 12/13/23 22:09 12/13/23 22:09 12/13/23 22:04 12/13/23 22:04 12/13/23 22:00 12/13/23 22:00 12/13/23 21:59 12/13/23 21:59 12/13/23 21:54 12/13/23 21:54 12/13/23 21:54 12/13/23 21:54 12/13/23 21:49 12/13/23 21:49 12/13/23 21:44 12/13/23 21:44 12/13/23 21:39 12/13/23 21:39 12/13/23 21:39 12/13/23 21:39 12/13/23 21:34 12/13/23 21:34 12/13/23 21:30 12/13/23 21:30 12/13/23 21:29 12/13/23 21:29 12/13/23 21:25 12/13/23 21:24 12/13/23 21:24 12/13/23 21:24 12/13/23 21:19 12/13/23 21:19 12/13/23 21:14 12/13/23 21:14 12/13/23 21:09 12/13/23 21:09 12/13/23 21:08 12/13/23 21:08 12/13/23 21:04 12/13/23 21:04 12/13/23 21:00 12/13/23 21:00 12/13/23 20:59 12/13/23 20:59 12/13/23 20:54 12/13/23 20:54 12/13/23 20:53 12/13/23 20:53 12/13/23 20:49 12/13/23 20:49 12/13/23 20:46 12/13/23 20:46 12/13/23 20:44 12/13/23 20:44 12/13/23 20:39 12/13/23 20:39 12/13/23 20:38 12/13/23 20:38 12/13/23 20:34 12/13/23 20:34 12/13/23 20:30 12/13/23 20:30 12/13/23 20:29 12/13/23 20:29 12/13/23 20:24 12/13/23 20:24 12/13/23 20:24 12/13/23 20:24 12/13/23 20:19 12/13/23 20:19 12/13/23 20:14 12/13/23 20:14 12/13/23 20:10 12/13/23 20:10 12/13/23 20:09 12/13/23 20:09 12/13/23 20:07 12/13/23 20:07 12/13/23 20:04 12/13/23 20:04 12/13/23 20:00 12/13/23 20:00 12/13/23 19:59 12/13/23 19:59 12/13/23 19:54 12/13/23 19:54 12/13/23 19:54 12/13/23 19:49 12/13/23 19:49 12/13/23 19:48 12/13/23 19:48
[2023-12-14] MEDS: IBUPROFEN 600 MG TAB PO PRN (08:42)
[2023-12-14] MEDS: DOCUSATE SODIUM 100 MG CAP PO SCH (08:42)
[2023-12-14] MEDS: PRENATAL VITAMIN 1 TAB PO SCH (08:42)
--- NOTE | 2023-12-14 09:03 | Anesthesia Procedure Note ---
Date of Service December 14, 2023 Anesthesia Post Epidural Note Vital Signs Vital Signs: Temp Pulse Resp BP Pulse Ox O2 Del Method 98.1 F 74 16 106/70 99 Room Air 12/14/23 08:35 12/14/23 08:35 12/14/23 08:35 12/14/23 08:35 12/14/23 03:15 12/14/23 03:15 Pain Intensity Perineal: Pain Intensity: 3 Notes Mental Status: alert / awake / arousable and participated in evaluation Nausea / Vomiting: adequately controlled Pain: adequately controlled Airway Patency, RR, SpO2: stable & adequate BP & HR: stable & adequate Hydration State: stable & adequate Neuraxial Anesthesia: was administered and sensory block is resolving Anesthetic Complications: no major complications apparent and Pt Satisfied with anesthetic care Epidural: Removed without complications and With tip intact
[2023-12-14] MEDS: ACETAMINOPHEN 325 MG TAB PO PRN (16:24)
[2023-12-14] MEDS: FLUoxetine HCL 20 MG CAP PO SCH (22:24)
--- NOTE | 2023-12-15 06:33 | Obstetrical Progress Note ---
Date of Service December 15, 2023 Assessment & Plan (1) Encounter for care and examination after delivery: Plan 28yo PPD#1 s/p Doing well today Encourage ambulation Vial signs reviewed Encourage Rubella immune, BGT: B+ Continue post care Discharge home today, instructions reviewed. Follow up in 6 weeks in office Admission and Anticipated Discharge Date Admission Date: December 13, 2023 Supervising Physician Co-Signing Physician Notes Patient seen with resident and agree with the above findings and plan. Doing well and stable for discharge Subjective 28 yo post- day 1 s/p Ambulation: ambulating normally Voiding: no voiding problems Passing Gas:: Yes Diet Tolerance:: regular diet Lochia:: Small Feeding Type:breast feeding Current Pain Level: moderate Resting comfortably this AM in NAD. Denies [place], CP, SOB, N/V/D, LE pain/swelling. Review of Systems Review of Systems: as per HPI Physical Exam Physical Exam: General: patient resting comfortably, NAD, non-toxic in appearance, AA&O x 4, answers questions appropriately. Heart: +S1/S2, regular, no m/r/g Lungs: equal air entry bilaterally, no rales/rhonchi/wheezes Abd: +BS, soft, NT/ND, uterine fundus firm at umbilicus Ext: warm, no clubbing/cyanosis or edema, Leigha's neg. Neuro: nonfocal, patient AA&O x 4, speech intact, no facial droop, moving all extremities on command. Results & Data Vital Signs (Past 12 Hours) Vital Signs Temp Pulse Resp BP Pulse Ox O2 Del Method 12/15/23 00:30 36.4 C L 62 16 108/68 Room Air 12/14/23 19:25 36.6 C 81 14 118/69 97 Room Air Resident Activity Tracking Resident Involvement: Resident Care Provided Care Provided: OB Delivery
[2023-12-15 06:38] LABS: Hematocrit (blood only) 31.1 % (37.0-47.0); Hemoglobin 10.4 g/dl (12.0-16.0)
[2023-12-15] MEDS ORDERED: bisacodyL 5 MG TABEC PO SCH (20:00)
[2023-12-15] MEDS ORDERED: FLUoxetine HCL 20 MG CAP PO SCH (21:00)
== END 2023-12-15 15:00 | disposition home or self-care (01) | DRG 807 ==
LOC: OPB 08:31 → 4S1 08:33 → 4E2 12-14 03:41